=== PATIENT | male | born 1970 | race African-American/Black ===

== ENCOUNTER 2019-07-05 17:12 | Emergency (ER) | payer BC, OTHER ==
[~2019-07-05] VITALS: Ht 190.5 cm; Wt 93.0 kg
[2019-07-05] MEDS ORDERED: KETOROLAC TROMETHAMINE 60 MG INJ IM ONE ×2 (17:29→17:30)
--- NOTE | 2019-07-05 17:30 | NUR ---
Patient was seen by . Toradol given as ordered.
== END 2019-07-05 17:36 | disposition home or self-care (01) ==
LOC: ER 17:20
DX: S43.421A Sprain of right rotator cuff capsule, initial encounter (principal); X58.XXXA Exposure to other specified factors, initial encounter; Y93.89 Activity, other specified; Y92.013 Bedroom of single-family (private) house as the place of occurrence of the external cause
CPT/HCPCS: 96372; 99283; J1885; A4663

== ENCOUNTER 2021-10-02 17:41 | Emergency (ER) | payer BC, OTHER ==
[~2021-10-02] VITALS: Ht 188 cm; Wt 89.8 kg
--- NOTE | 2021-10-02 19:00 | NUR ---
Received report from SAMPSON Ortiz RN. Patient awake, A/Ox4. VSS. NAD. Ambulated to the bathroom with steady gait.
--- NOTE | 2021-10-02 19:25 | NUR ---
Nursing SBAR given to PARAMJIT Munoz. Patient is waiting for results and disposition.
[2021-10-02] MEDS ORDERED: OXYC-128 PO (19:33)
--- NOTE | 2021-10-02 19:50 | NUR ---
Patient discharged to home via private vehicle in stable condition. Ambulatory with steady gait. Written and verbal after care instructions given. Patient verbalizes understanding of instructions. Stressed follow up or return to ER for worsening s/s.
[2021-10-02 19:58] VITALS: BP 125/70
[2021-10-03] MEDS ORDERED: OXYC-128 PO ×2 (15:30)
== END 2021-10-02 19:50 | disposition home or self-care (01) ==
LOC: ER 18:47
DX: M54.89 Other dorsalgia (principal)
CPT/HCPCS: 73502; A4663

== ENCOUNTER 2023-01-23 12:20 | Emergency (ER) | payer BC, OTHER ==
[~2023-01-23] VITALS: Ht 188 cm; Wt 88.5 kg
[~2023-01-23 12:20] MED LIST: OXYC-128 PO
[2023-01-23 13:39] VITALS: BP 122/80; TEMP 98; O2SAT 99
== END 2023-01-23 13:44 | disposition home or self-care (01) ==
LOC: ER 12:29
DX: H11.31 Conjunctival hemorrhage, right eye (principal); Z79.899 Other long term (current) drug therapy
CPT/HCPCS: A4606; A4663